=== PATIENT | male | born 1990 | race Two or more races ===

== ENCOUNTER → 2022-05-13 | Emergency (ER) | payer SELFPAY ==
[~2022-05-13] VITALS: Ht 182.9 cm; Wt 4.5 kg
[~2022-05-13] MED LIST: ARIP2TAB3 PO
[2022-05-13 04:39] VITALS: BP 120/80
== END | disposition home or self-care (01) ==
LOC: ER 03:41
DX: Z53.20 Procedure and treatment not carried out because of patient's decision for unspecified reasons (principal)